=== PATIENT | female | born 1945 | race Caucasian/White ===

== ENCOUNTER 2021-10-31 12:13 | Emergency (ER) | payer OTHER ==
[2021-10-31 12:21] VITALS: TEMP 98; BMI 26.5
[2021-10-31] MEDS ORDERED: MAG HYDROX/AL HYDROX/SIMETH -MYLANTA- ORAL SUSPENSION PO ONE (12:59)
[2021-10-31] MEDS ORDERED: ACETAMINOPHEN 500 MG TABLET (FP) PO ONE (12:59)
[2021-10-31] MEDS ORDERED: FAMOTIDINE 10 MG TABLET PO ONE (12:59)
[2021-10-31] MEDS ORDERED: FAMOTIDINE 10 MG TABLET ONE (13:07)
[2021-10-31] MEDS ORDERED: MAG HYDROX/AL HYDROX/SIMETH 30 ML UNIT-DOSE CUP ONE (13:08)
[2021-10-31] MEDS ORDERED: ACETAMINOPHEN 325 MG TABLET (FP) ONE (13:09)
[2021-10-31 13:46] LABS: CHLORIDE 105 mmol/L (98-107); SODIUM 141 mmol/L (136-145)
[2021-10-31 13:47] LABS: CALCIUM 9.4 mg/dL (8.5-10.1)
[2021-10-31 13:48] LABS: ALBUMIN 3.3 g/dl (3.4-5.0); ANION GAP 6 MMOL/L (8-16); BLOOD UREA NITROGEN 11.4 mg/dL (7-18); CO2 30 mmol/L (21-32); MAGNESIUM 2.3 mg/dL (1.8-2.4)
[2021-10-31 13:49] LABS: BASO % 0.5 % (0-2.0); EOS % 2.3 % (0-4.5); HEMOGLOBIN 12.3 GM/dL (10.7-15.3); LYMPH % 38.2 % (8-40); MCH 28.5 pg (25.7-33.7); MCHC 33.4 g/dl (32.0-36.0); MEAN CELL VOLUME 85.2 fl (80-96); MEAN PLT VOLUME 7.8 fl (7.5-11.1); MONO % 6.5 % (3.8-10.2); NEUT % 52.5 % (42.8-82.8); PLATELET COUNT 421 10^3/uL (134-434); RBC 4.34 M/mm3 (3.60-5.2); RDW 13.1 % (11.6-15.6); WHITE BLOOD COUNT 14.1 K/mm3 (4.0-10.0)
[2021-10-31 13:51] LABS: URINE APPEARANCE CLEAR; URINE BILIRUBIN NEGATIVE (NEGATIVE); URINE COLOR YELLOW; URINE GLUCOSE (UA) NEGATIVE (NEGATIVE); URINE KETONE NEGATIVE (NEGATIVE); URINE LEUK ESTERASE NEGATIVE (NEGATIVE); URINE NITRITE NEGATIVE (NEGATIVE); URINE PROTEIN NEGATIVE (NEGATIVE); URINE UROBILINOGEN 0.2 mg/dL (0.2-1.0)
[2021-10-31 13:52] LABS: CREATININE 0.8 mg/dL (0.55-1.3); SGOT/AST 15 U/L (15-37); SGPT/ALT 26 U/L (13-61)
[2021-10-31 13:54] LABS: ALK PHOS 79 U/L (45-117); BILIRUBIN,TOTAL 0.4 mg/dL (0.2-1); TOT PROT 7.1 g/dl (6.4-8.2)
[2021-10-31 13:57] LABS: GLUCOSE,RANDOM 97 mg/dL (74-106)
[2021-10-31 16:49] LABS: LIPASE 190 U/L (73-393)
[2021-10-31 18:25] VITALS: BP 127/64; PULSE 66
== END 2021-10-31 19:06 | disposition home or self-care (01) ==
LOC: JER 12:13
DX: R10.9 Unspecified abdominal pain (principal)
CPT/HCPCS: 36415; 71045-TC-FY; 74177-TC; 80053; 81003; 82550; 83690; 83735; 84484; 85025; 87086; 93005; 93010; 99285-25; Q9967

== ENCOUNTER 2022-03-06 20:42 | Emergency (ER) | payer OTHER ==
[2022-03-06 21:29] VITALS: BP 168/77; PULSE 96; TEMP 98; BMI 26.9
[2022-03-06] MEDS ORDERED: ACETAMINOPHEN 325 MG TABLET (FP) PO ONE (22:28)
[2022-03-06] MEDS ORDERED: ACETAMINOPHEN 325 MG TABLET (FP) ONE (22:34)
[2022-03-06 22:45] LABS: EPI CELLS 10 /uL (0-25.1); HYALINE CASTS 1 /uL (0-3.1); URINE APPEARANCE CLEAR; URINE BACTERIA 63 /uL (0-1359); URINE BILIRUBIN NEGATIVE (NEGATIVE); URINE COLOR YELLOW; URINE GLUCOSE (UA) NEGATIVE (NEGATIVE); URINE KETONE NEGATIVE (NEGATIVE); URINE LEUK ESTERASE TRACE (NEGATIVE); URINE NITRITE NEGATIVE (NEGATIVE); URINE PROTEIN TRACE (NEGATIVE); URINE RBC 2 /uL (0-23.9); URINE UROBILINOGEN 0.2 mg/dL (0.2-1.0); URINE WBC 11 /uL (0-25.8)
== END 2022-03-06 23:14 | disposition home or self-care (01) ==
LOC: JER 20:42
DX: N81.4 Uterovaginal prolapse, unspecified (principal)
CPT/HCPCS: 81003; 87086; 99283-25